=== PATIENT | female | born 1990 | race American Indian/Alaskan Native ===

== ENCOUNTER 2019-10-15 11:11 | Emergency (ER) | payer OTHER ==
[2019-10-15 11:23] VITALS: BP 150/83
[2019-10-15 12:12] LABS: HCG Qualitative,Urine Positive (Negative)
[2019-10-15 12:16] LABS: Bilirubin,Urine NEG (Negative); Blood,Urine NEG (Negative); Color,Urine Yellow (Yellow); Mucus,Urine FEW /HPF; Protein,Urine <15 mg/dL mg/dL (Negative); Urobilinogen,Urine < 2.0 mg/dL (<2.0)
[2019-10-15] MEDS ORDERED: SODIUM CHLORIDE 0.9% 1000 ML 1,000 ML IV ONE (12:24)
[2019-10-15] MEDS ORDERED: METOCLOPRAMIDE 10 MG/2 ML INJ IV ONE (12:25)
[2019-10-15] MEDS ORDERED: diphenhydrAMINE 50 MG/ML VIAL IV ONE (12:38)
--- NOTE | 2019-10-15 12:39 | Emergency Department Report ---
ED HPI - General Chief complaint: Nausea/Vomiting/Diarrhea Stated complaint: DIZZY/HEADACHE/NAUSEA Time Seen by Provider: 10/15/19 12:24 Source: patient Mode of arrival: Ambulatory Limitations: No Limitations - History of Present Illness Initial comments: This is a 28-year-old female at approximately 10 weeks gestation presents the ED complaining of left-sided frontal and temporal throbbing headache for the past 4 weeks. Patient states that yesterday she had there was vomiting episode since the . Patient states she was unable to eat or drink and was severely nauseated. Patient states she had a telemetry appointment with her [facility] yesterday and after mentioning the headache was told to take Benadryl and Tylenol and if no relief presents the ED. Patient states that she gets care from my [facility]. Patient does note that for the past 4 weeks she has had nausea with mild vomiting and loss of appetite. She does deny fever/chills/blurry vision/abdominal pain/vaginal bleeding or vaginal discharge or urinary symptoms. - Related Data Previous Rx's Medication Instructions Recorded Last Taken Type Metoclopramide [Reglan] 10 mg PO TID #60 tab 10/15/19 Unknown Rx Allergies Allergy/AdvReac Type Severity Reaction Status Date / Time No Known Allergies Allergy Unverified 10/15/19 11:13 ED Review of Systems ROS: Stated complaint: DIZZY/HEADACHE/NAUSEA Other details as noted in HPI Comment: All other systems reviewed and negative ED Past Medical Hx - Past Medical History Previous Medical History?: No - Surgical History Hx Cholecystectomy: Yes - Social History Smoking Status: Never Smoker Substance Use Type: None - Medications Home Medications: Home Medications Medication Instructions Recorded Confirmed Last Taken Type Metoclopramide [Reglan] 10 mg PO TID #60 tab 10/15/19 Unknown Rx ED Physical Exam - General Limitations: No Limitations General appearance: alert, in no apparent distress - Head Head exam: Present: atraumatic, normocephalic - Eye Eye exam: Present: normal appearance, PERRL Pupils: Present: normal accommodation - ENT ENT exam: Present: normal exam, mucous membranes moist, TM's normal bilaterally (No erythema, no effusion) - Neck Neck exam: Present: normal inspection, full ROM. Absent: tenderness, meningismus - Respiratory Respiratory exam: Present: normal lung sounds bilaterally. Absent: respiratory distress - Cardiovascular Cardiovascular Exam: Present: regular rate, normal rhythm. Absent: systolic murmur, diastolic murmur, rubs, gallop - GI/Abdominal GI/Abdominal exam: Present: soft, normal bowel sounds. Absent: distended, tenderness - Extremities Exam Extremities exam: Present: normal inspection, full ROM - Back Exam Back exam: Present: normal inspection - Neurological Exam Neurological exam: Present: alert, oriented X3, normal gait - Psychiatric Psychiatric exam: Present: normal affect, normal mood - Skin Skin exam: Present: warm, dry, intact, normal color. Absent: rash ED Course Vital Signs 10/15/19 11:14 Temperature 98.4 F Pulse Rate 90 Respiratory 18 Rate Blood Pressure 150/83 O2 Sat by Pulse 99 Oximetry ED Medical Decision Making - Medical Decision Making This 28-year-old female who presents with related symptoms such as headache and nausea vomiting. Patient received a liter of fluids Reglan and Benadryl in the ED. All labs within normal limits. Urine normal test positive. Patient had no vomiting episode in the ED. Nausea medication prescribed for patient. Discussed follow-up with my [facility]GER [facility]. Patient does report feeling better prior to discharge. Discussed the importance of increased hydration especially during as this can lead to headache. Vital signs are normal she is in no acute distress. Critical care attestation.: If time is entered above; I have spent that time in minutes in the direct care of this critically ill patient, excluding procedure time. ED Disposition Clinical Impression: Nausea and vomiting during , Headache Disposition: DC-01 TO HOME OR SELFCARE Is pt being admited?: No Does the pt Need Aspirin: No Condition: Stable Instructions: Morning Sickness (ED), Acute Nausea and Vomiting (ED), Acute Headache (ED) Additional Instructions: Make sure to follow up with my [facility] as discussed. Take your medications as you've been prescribed for nausea. Continue to take Tylenol as needed for headache Increase hydration to 8 to 10 glasses of water per day If you have any worsening symptoms or develop new symptoms please return to ED immediately. Prescriptions: Metoclopramide [Reglan] 10 mg PO TID #60 tab Referrals: PRIMARY CARE, [Primary Care Provider] - 3-5 Days [facility] [Provider Group] - 3-5 Days Forms: Accompanied Note, Work/School Release Form(ED)
[2019-10-15 13:14] LABS: Basophils # (Auto) 0.1 K/mm3 (0.0-0.1); Eosinophils # (Auto) 0.2 K/mm3 (0.0-0.4); Eosinophils % (Auto) 3.1 % (0.0-4.3); Hematocrit 36.7 % (30.3-42.9); Hemoglobin 12.5 gm/dl (10.1-14.3); Lymphocytes # (Auto) 1.9 K/mm3 (1.2-5.4); Lymphocytes % (Auto) 29.9 % (13.4-35.0); Mean Corpuscular HGB Conc 34 % (30-34); Mean Corpuscular Volume 81 fl (79-97); Monocytes # (Auto) 0.8 K/mm3 (0.0-0.8); Monocytes % (Auto) 11.7 % (0.0-7.3); Platelet Count 253 K/mm3 (140-440); Red Blood Count 4.51 M/mm3 (3.65-5.03)
[2019-10-15 13:25] LABS: Alanine Aminotransferase 18 units/L (7-56); Albumin 4.1 g/dL (3.9-5); BUN/Creatinine Ratio 10; Blood Urea Nitrogen 4 mg/dL (7-17); Calcium 9.4 mg/dL (8.4-10.2); Hemolysis Index 24
== END 2019-10-15 15:13 | disposition home or self-care (01) ==
LOC: ED 11:11
DX: O21.8 Other vomiting complicating pregnancy (principal); O26.891 Other specified pregnancy related conditions, first trimester; R51 Headache; Z3A.10 10 weeks gestation of pregnancy; Z90.49 Acquired absence of other specified parts of digestive tract; Z79.899 Other long term (current) drug therapy
CPT/HCPCS: 36415; 80053; 81001; 81025; 85025; 96361; 96374; 96375; 99283; J1200; J2765; J7030

== ENCOUNTER 2020-01-30 20:34 | Outpatient (CLI) | payer OTHER ==
[2020-01-30 21:12] VITALS: BP 123/73
== END 2020-01-30 22:20 | disposition home or self-care (01) ==
LOC: TRG 20:34 → APU 20:35 → TRG 22:20
PROVIDERS: ATTEND Obstetrics & Gynecology
DX: O26.892 Other specified pregnancy related conditions, second trimester (principal); R10.9 Unspecified abdominal pain; Z3A.25 25 weeks gestation of pregnancy
CPT/HCPCS: 59025

== ENCOUNTER 2020-03-23 19:30 | Outpatient (CLI) | payer OTHER ==
[2020-03-23 19:52] VITALS: BP 125/67
[2020-03-23 20:46] LABS: Bacteria,Urine 1+ /HPF (Negative); Bilirubin,Urine NEG (Negative); Blood,Urine NEG (Negative); Color,Urine Colorless (Yellow); Protein,Urine <15 mg/dL mg/dL (Negative); RBC,Urine < 1.0 /HPF (0.0-6.0); Urobilinogen,Urine < 2.0 mg/dL (<2.0)
[2020-03-23 20:47] LABS: WBC,Urine < 1.0 /HPF (0.0-6.0)
== END 2020-03-23 20:42 | disposition home or self-care (01) ==
LOC: TRG 19:30
PROVIDERS: ATTEND Obstetrics & Gynecology
DX: Z34.83 Encounter for supervision of other normal pregnancy, third trimester (principal); Z3A.33 33 weeks gestation of pregnancy
CPT/HCPCS: 59025; 81001

== ENCOUNTER 2020-04-19 18:26 | Inpatient (IN) | payer OTHER ==
[2020-04-19] MEDS ORDERED: LACTATED RINGERS 1,000 ML IV ONE (23:18)
[2020-04-20] MEDS ORDERED: fentaNYL 100 MCG/2 ML INJ IV PRN (03:27)
[2020-04-20] MEDS ORDERED: ePHEDrine SULFATE 50 MG/1 ML INJ IV PRN (03:27)
[2020-04-20] MEDS ORDERED: LIDOCAINE (2%) 20 MG/1 ML VIAL 20 ML MDV INFILTRATI ONE (03:27)
[2020-04-20] MEDS ORDERED: TERBUTALINE 1 MG/1 ML INJ SUB-Q PRN (03:27)
[2020-04-20] MEDS ORDERED: MINERAL OIL 30 ML ORAL LIQD PO PRN (03:27)
[2020-04-20] MEDS ORDERED: ONDANSETRON 4 MG/2 ML INJ IV PRN (03:27)
[2020-04-20] MEDS ORDERED: LACTATED RINGERS 1,000 ML IV SCH (04:00)
[2020-04-20] MEDS ORDERED: OXYTOCIN DRIP 30 UNITS/500 ML BAG IV SCH (04:00)
--- NOTE | 2020-04-20 06:45 | History and Physical Report ---
History of Present Illness Date of examination: 04/20/20 Chief complaint: "regular contractions since 4:30pm" last night History of present illness: EDC Confirmation: 05/10/2020 Past History : 6 Term Births: 3 Premature Births: 0 Living Children: 3 Para: 3 Mult. Births: 0 Prev : 0 Aborta: 2 Elect. Ab: 0 Spont. Ab: 2 Ectopics: 0 # 1 Delivery date: 2006 Weeks Gestation: term labor: no Delivery type: Anesthesia type: none Delivery location: [place] Sex: Female weight: 7# # 2 Delivery date: 2007 Weeks Gestation: term labor: no Delivery type: Anesthesia type: none Delivery location: [place] Sex: Female weight: 7# # 3 Delivery date: 2012 Weeks Gestation: term labor: no Delivery type: Anesthesia type: none Delivery location: [place] [facility] Sex: Female weight: 8# # 4 Delivery date: 2017 Delivery type: SAB Comments: D&C # 5 Delivery date: 2018 Delivery type: SAB Past Medical History: Negative Past Medical History Past Surgical History: Cholecystectomy 2017 Past Medical History Surgery (Non-obstetrics gyn physician): Cholecystectomy 2017 Abnormal PAP: negative Family Hx: htn - mother & father DM - mother & father Social Hx: Works at [employer] no pets no ETOH/Drugs/smoking Infection History Hx of STD: chlamydia HIV Risk Eval: low risk Hepatitis B Risk Eval: low risk Personal hx. of genital herpes: no Partner hx. of genital herpes: no Rash, Viral, or Febrile illness since last LMP? no Varicella/Chicken Pox Status: Previous Disease Genetic History Congenital Heart Defect: Mom: no Dad: no Evaristo Disease: Mom: no Dad: no Thalassemia Mom: no Dad: no Neural Tube Defect Mom: no Dad: no Down's Syndrome Mom: no Dad: no Michele-Sachs Mom: no Dad: no Sickle Cell Disease/Trait Mom: no Dad: no Hemophilia Mom: no Dad: no Muscular Dystrophy Mom: no Dad: no Cystic Fibrosis Mom: no Dad: no [place] Chorea Mom: no Dad: no Mental Retardation Mom: no Dad: no Fragile X Mom: no Dad: no Other Genetic/Chromosomal Disorder Mom: no Dad: no Child w/other defect Mom: no Dad: no Enviromental Exposures Xray Exposure: no Medication, drug, or alcohol use since LMP: no Chemical/Other Exposure: no Exposure to Cat Liter: no Hx of Parvovirus (Fifth Disease): no Occupational Exposure to Children: none Active Medications: None Current Allergies: No known allergies Past History - Obstetrical History Expected Date of Delivery: 05/10/20 Actual Gestation: 37 Week(s) 1 Day(s) : 4 Medications and Allergies Allergies Allergy/AdvReac Type Severity Reaction Status Date / Time No Known Allergies Allergy Unverified 10/15/19 11:13 Home Medications Medication Instructions Recorded Confirmed Last Taken Type Metoclopramide [Reglan] 10 mg PO TID #60 tab 10/15/19 Unknown Rx Active Meds: Active Medications Ephedrine Sulfate (Ephedrine Sulfate) 10 mg IV Q2M PRN PRN Reason: Hypotension Fentanyl (Sublimaze) 100 mcg IV Q2H PRN PRN Reason: Pain,Severe (7-10) LABOR PAIN Lactated Ringer's (Lactated Ringers) 1,000 mls @ 125 mls/hr IV DIRECT ANNABELLA Oxytocin/Sodium Chloride (Pitocin/Ns 30 Unit/500ml) 30 units in 500 mls @ 40 mls/hr IV TITR ANNABELLA; Protocol Mineral Oil (Mineral Oil) 30 ml PO QHS PRN PRN Reason: Constipation Ondansetron HCl (Zofran) 4 mg IV Q8H PRN PRN Reason: Nausea And Vomiting Terbutaline Sulfate (Brethine) 0.25 mg SUB-Q ONCE PRN PRN Reason: Hyperstimulation/Hypertonicity Review of Systems All systems: negative Genitourinary: contractions - Vital Signs Vital signs: Vital Signs Pulse Pulse Ox 99 H 97 04/19/20 19:47 04/19/20 19:47 Temp Pulse Resp BP Pulse Ox 98.1 F 100 H 18 137/74 97 04/20/20 06:15 04/19/20 23:21 04/20/20 06:15 04/20/20 06:15 04/19/20 23:21 - Physical Exam Breasts: Positive: deferred Cardiovascular: Regular rate, Normal S1, Normal S2 Lungs: Positive: Clear to auscultation, Normal air movement Abdomen: Positive: normal appearance, soft Genitourinary (Female): Positive: normal external genitalia, normal perenium Vulva: both: normal Vagina: Positive: normal moisture Uterus: Positive: normal size Anus/Rectum: Positive: normal perianal skin Extremities: Positive: normal - Obstetrical FHR: auscultation normal, category 1 Uterine Contraction Monitor Mode: External Cervical Dilatation: 2.5 Uterine Contraction Pattern: Regular Uterine Contraction Intensity: Moderate Results All other labs normal. Assessment and Plan - Patient Problems (1) GDM (gestational diabetes mellitus) Current Visit: Yes Status: Acute (2) Polyhydramnios Current Visit: Yes Status: Acute (3) 37 or more weeks gestation of Current Visit: Yes Status: Acute (4) 37 weeks gestation of Current Visit: Yes Status: Acute
[2020-04-20 07:23] LABS: Hematocrit 32.2 % (30.3-42.9); Hemoglobin 10.8 gm/dl (10.1-14.3); Mean Corpuscular HGB Conc 34 % (30-34); Mean Corpuscular Volume 79 fl (79-97); Red Blood Count 4.06 M/mm3 (3.65-5.03); Red Cell Distribution Width 14.8 % (13.2-15.2)
--- NOTE | 2020-04-20 07:32 | Discharge Summary ---
Providers - Providers Date of Admission: 04/20/2020 Date of discharge: 04/20/20 (Pt agrees to discharge home.) Attending physician: DEVIN GARCIA Primary care physician: BLAZE DIAMOND Hospitalization Reason for admission: observation, other (Early labor) Discharge diagnosis: other (37+ wks undelivered. Category 1 EFM tracing. ) Hospital course: S: Still feeling some ctxs. Denies vag bleeding, LOF. + FM. O: VSS. Category 1 EFM tracing. Cervical exam /-3. Regular ctxs @ 5 minutes apart. A: 29 y.o. @ 37+ wks with early labor s/sx, ctxs. Unchanged cervix for approximately 6.5 hours. No LOF, vag bleeding. P: Therapeutic rest @ home. Strict labor precautions given. Discharge home with instructions. Condition at discharge: Good Disposition: DC-01 TO HOME OR SELFCARE Plan - Provider Discharge Summary Activity: routine Diet: routine Instructions: routine Additional instructions: [] Smoking cessation referral if applicable(refer to patient education folder for contact #) [] Refer to [employer] Booklet Call your doctor immediately for: * Fever > 100.5 * Heavy vaginal bleeding ( >1 pad per hour) * Severe persistent headache * Shortness of breath * Reddened, hot, painful area to leg or breast * Drainage or odor from incision. * Keep incision clean and dry at all times and follow doctor's instructions regarding bathing/showering - Follow up plan Follow up: BLAZE DIAMOND MD [Primary Care Provider] - 7 Days (If you experience decreased movement, vaginal bleeding like a period, ctxs 5-7 minutes apart, or if you think that your water broke, please call the personalized living manager provider and come to [facility] triage for evaluation. If you have any additional questions or concerns, please do not hesitate to call the office at [phone]. )
[2020-04-20 07:56] VITALS: BP 112/57
[2020-04-20] MEDS ORDERED: ACETAMINOPHEN 500 MG TAB PO SCH (08:00)
[2020-04-20 08:21] LABS: Platelet Count 258 K/mm3 (140-440)
== END 2020-04-20 09:27 | disposition home or self-care (01) | DRG 781 ==
LOC: TRG 18:26 → APU 18:31 → TRG 04-20 08:09 → LD 04-20 08:10
PROVIDERS: ADMIT Obstetrics & Gynecology; ATTEND Obstetrics & Gynecology
DX: O40.3XX0 Polyhydramnios, third trimester, not applicable or unspecified (principal); O24.419 Gestational diabetes mellitus in pregnancy, unspecified control; Z20.828 Contact with and (suspected) exposure to other viral communicable diseases; Z90.49 Acquired absence of other specified parts of digestive tract; Z3A.37 37 weeks gestation of pregnancy
CPT/HCPCS: 36415; 85027; 86592; 86850; 86900; 86901; G0378; J7120; Q0177; U0003

== ENCOUNTER 2020-04-22 03:01 | Outpatient (CLI) | payer OTHER ==
[2020-04-22 03:32] VITALS: BP 134/80
== END 2020-04-22 05:00 | disposition home or self-care (01) ==
LOC: TRG 03:01 → APU 03:13 → TRG 05:00
PROVIDERS: ATTEND Obstetrics & Gynecology
DX: Z34.83 Encounter for supervision of other normal pregnancy, third trimester (principal); Z3A.37 37 weeks gestation of pregnancy
CPT/HCPCS: 59025

== ENCOUNTER 2020-05-05 20:24 | Inpatient (IN) | payer OTHER ==
[2020-05-05] MEDS ORDERED: ONDANSETRON 4 MG/2 ML INJ IV PRN (20:58)
[2020-05-05] MEDS ORDERED: ACETAMINOPHEN 325 MG TAB PO PRN (20:58)
[2020-05-05] MEDS ORDERED: fentaNYL 100 MCG/2 ML INJ IV PRN (20:58)
[2020-05-05] MEDS ORDERED: ePHEDrine SULFATE 50 MG/1 ML INJ IV PRN (20:58)
[2020-05-05] MEDS ORDERED: OXYTOCIN 10 UNIT/1 ML INJ IM PRN (20:58)
[2020-05-05] MEDS ORDERED: miSOPROStol 200 MCG TAB PR PRN (20:58)
[2020-05-05] MEDS ORDERED: TERBUTALINE 1 MG/1 ML INJ SUB-Q PRN (20:58)
[2020-05-05] MEDS ORDERED: METHYLERGONOVINE MALEATE 0.2 MG/ML VIAL IM PRN (20:58)
[2020-05-05] MEDS ORDERED: MINERAL OIL 30 ML ORAL LIQD PO PRN (20:58)
[2020-05-05] MEDS ORDERED: LIDOCAINE (2%) 20 MG/1 ML VIAL 20 ML MDV INFILTRATI ONE (20:58)
[2020-05-05] MEDS ORDERED: OXYTOCIN DRIP 30 UNITS/500 ML BAG IV SCH ×2 (21:00)
--- NOTE | 2020-05-05 21:20 | History and Physical Report ---
History of Present Illness Date of examination: 05/05/20 ([facility] Date of admission: 05/05/20 20:25 History of present illness: EDC Confirmation: 05/10/2020 Gestational Age: 39w2d Past History : 6 Term Births: 3 Premature Births: 0 Living Children: 3 Para: 3 Mult. Births: 0 Prev : 0 Aborta: 2 Elect. Ab: 0 Spont. Ab: 2 Ectopics: 0 # 1 Delivery date: 2006 Weeks Gestation: term labor: no Delivery type: Anesthesia type: none Delivery location: [place] Sex: Female weight: 7# # 2 Delivery date: 2007 Weeks Gestation: term labor: no Delivery type: Anesthesia type: none Delivery location: [place] Sex: Female weight: 7# # 3 Delivery date: 2012 Weeks Gestation: term labor: no Delivery type: Anesthesia type: none Delivery location: [place] [facility] Sex: Female weight: 8# # 4 Delivery date: 2017 Delivery type: SAB Comments: D&C # 5 Delivery date: 2018 Delivery type: SAB Past Medical History: Negative Past Medical History Past Surgical History: Cholecystectomy 2017 Past Medical History Surgery (Non-dumper bulk system): Cholecystectomy 2017 Abnormal PAP: negative Family Hx: htn - mother & father DM - mother & father Social Hx: Works at [employer] no pets no ETOH/Drugs/smoking Infection History Hx of STD: chlamydia HIV Risk Eval: low risk Hepatitis B Risk Eval: low risk Personal hx. of genital herpes: no Partner hx. of genital herpes: no Rash, Viral, or Febrile illness since last LMP? no Varicella/Chicken Pox Status: Previous Disease Genetic History Congenital Heart Defect: Mom: no Dad: no Evaristo Disease: Mom: no Dad: no Thalassemia Mom: no Dad: no Neural Tube Defect Mom: no Dad: no Down's Syndrome Mom: no Dad: no Michele-Sachs Mom: no Dad: no Sickle Cell Disease/Trait Mom: no Dad: no Hemophilia Mom: no Dad: no Muscular Dystrophy Mom: no Dad: no Cystic Fibrosis Mom: no Dad: no [place] Chorea Mom: no Dad: no Mental Retardation Mom: no Dad: no Fragile X Mom: no Dad: no Other Genetic/Chromosomal Disorder Mom: no Dad: no Child w/other defect Mom: no Dad: no Enviromental Exposures Xray Exposure: no Medication, drug, or alcohol use since LMP: no Chemical/Other Exposure: no Exposure to Cat Liter: no Hx of Parvovirus (Fifth Disease): no Occupational Exposure to Children: none Active Medications: None Current Allergies: No known allergies Past History - Obstetrical History Expected Date of Delivery: 05/10/20 Actual Gestation: 39 Week(s) 2 Day(s) : 6 Para: 3 Hx # Term Pregnancies: 3 Number of Pregnancies: 0 Spontaneous Abortions: 2 Induced : 0 Number of Living Children: 3 Medications and Allergies Allergies Allergy/AdvReac Type Severity Reaction Status Date / Time No Known Allergies Allergy Unverified 10/15/19 11:13 Home Medications Medication Instructions Recorded Confirmed Last Taken Type Metoclopramide [Reglan] 10 mg PO TID #60 tab 10/15/19 Unknown Rx Active Meds: Active Medications Acetaminophen (Tylenol) 650 mg PO Q4H PRN PRN Reason: Pain, Mild (1-3) Ephedrine Sulfate (Ephedrine Sulfate) 10 mg IV Q2M PRN PRN Reason: Hypotension Fentanyl (Sublimaze) 100 mcg IV Q2H PRN PRN Reason: Pain,Severe (7-10) LABOR PAIN Oxytocin/Sodium Chloride (Pitocin/Ns 30 Unit/500ml) 30 units in 500 mls @ 2 mls/hr IV TITR ANNABELLA; Protocol Lactated Ringer's (Lactated Ringers) 1,000 mls @ 125 mls/hr IV DIRECT ANNABELLA Oxytocin/Sodium Chloride (Pitocin/Ns 30 Unit/500ml) 30 units in 500 mls @ 40 mls/hr IV TITR ANNABELLA; Protocol Lidocaine (Xylocaine 2%) 20 ml INFILTRATI ONCE ONE Stop: 05/05/20 20:59 Methylergonovine Maleate (Methergine) 0.2 mg IM ONCE PRN PRN Reason: Uterine Bleeding Mineral Oil (Mineral Oil) 30 ml PO QHS PRN PRN Reason: Constipation Misoprostol (Cytotec) 800 mcg MI ONCE PRN PRN Reason: Uterine Bleeding Ondansetron HCl (Zofran) 4 mg IV Q8H PRN PRN Reason: Nausea And Vomiting Oxytocin (Pitocin) 10 unit IM ONCE PRN PRN Reason: Uterine Bleeding Terbutaline Sulfate (Brethine) 0.25 mg SUB-Q ONCE PRN PRN Reason: Hyperstimulation/Hypertonicity Review of Systems All systems: negative - Physical Exam Breasts: Positive: deferred Cardiovascular: Regular rate, Normal S1, Normal S2 Abdomen: Positive: normal appearance, soft, normal bowel sounds. Negative: distention, tenderness Vulva: both: normal Vagina: Positive: normal moisture. Negative: discharge Cervix: Negative: lesion, discharge Uterus: Positive: normal size, normal contour Adnexa: both: normal Anus/Rectum: Positive: normal perianal skin, heme negative. Negative: rectal mass, hemorrhoids Extremities: Deep Tendon Reflex Grade: Normal +2 - Obstetrical Uterine Contraction Monitor Mode: External Cervical Dilatation: 3 Cervical Effacement Percentage: 50 station: -2 Uterine Contraction Pattern: Irregular Uterine Tone Measurement Phase: Resting Uterine Contraction Intensity: Mild Results All other labs normal. GBS Negative HBsAg Screen Negative Negative *1 RPR Non Reactive Non Reactive *2 Rubella Antibodies, IgG 5.09 index Immune >0.99 *3 Non-immune <0.90 Equivocal 0.90 - 0.99 Immune >0.99 ABO Grouping O *4 Rh Factor Positive *5 Please note: Prior records for this patient's ABO / Rh type are not available for additional verification. Antibody Screen Negative Negative *6 WBC 8.7 x10E3/uL 3.4-10.8 *7 RBC 4.07 x10E6/uL 3.77-5.28 *8 Hemoglobin 11.1 g/dL 11.1-15.9 *9 Hematocrit 34.6 % 34.0-46.6 *10 MCV 85 fL 79-97 *11 MCH 27.3 pg 26.6-33.0 *12 MCHC 32.1 g/dL 31.5-35.7 *13 RDW [H] 15.6 % 11.7-15.4 *14 Platelets 229 x10E3/uL 150-450 *15 Neutrophils 71 % Not Estab. *16 Lymphs 18 % Not Estab. *17 Monocytes 10 % Not Estab. *18 Eos 1 % Not Estab. *19 Basos 0 % Not Estab. *20 ! Immature Cells <No Reported Value> *21 Neutrophils (Absolute) 6.1 x10E3/uL 1.4-7.0 *22 Lymphs (Absolute) 1.6 x10E3/uL 0.7-3.1 *23 Monocytes(Absolute) 0.9 x10E3/uL 0.1-0.9 *24 Eos (Absolute) 0.1 x10E3/uL 0.0-0.4 *25 Baso (Absolute) 0.0 x10E3/uL 0.0-0.2 *26 ! Immature Granulocytes 0 % Not Estab. *27 ! Immature Grans (Abs) 0.0 x10E3/uL 0.0-0.1 *28 ! NRBC <No Reported Value> *29 Hematology Comments: <No Reported Value> *30 Tests: (2) AFP Tetra ([id number]) ! Results Report *31 ! Test Results: *Screen Negative* *32 ! Gest. Age on Collection Date 15.1 WEEKS *33 ! Gestat. Age Based On Ultrasound *34 15.1 on 11/18/2019 Tests: (3) HIV Ag/Ab with Reflex ([id number]) HIV Screen 4th Generation wRfx Non Reactive Non Reactive *55 Tests: (4) Gest. Diabetes 1-Hr Screen (760332) ! Gestational Diabetes Screen 131 mg/dL 65-139 *56 According to ADA, a glucose threshold of >139 mg/dL after 50-gram load identifies approximately 80% of women with gestational diabetes mellitus, while the sensitivity is further increased to approximately 90% by a threshold of >129 mg/dL. Tests: (5) HCV Ab w/Rflx to Verification ([id number]) ! HCV Ab <0.1 s/co ratio 0.0-0.9 *57 Tests: (6) Comment: ([id number]) ! Comment: SPRCS *58 Non reactive HCV antibody screen is consistent with no HCV infection, unless recent infection is suspected or other evidence exists to indicate HCV infection. Tests: (7) Urine Culture, Routine ([id number]) Urine Culture, Routine Final report *59 Tests: (8) Result ([id number]) ! Result 1 No growth Assessment and Plan 29yo @ 39w2d for IOL per recommendation of AMFM. Poly, GDM,obesity. GBS is negative All orders in EMR. Low dose pitocin for IOL. Pt declines epidural - Patient Problems (1) GDM (gestational diabetes mellitus) Onset Date: ~05/05/20 Current Visit: Yes Status: Acute Qualifiers: Gestational diabetes mellitus control: diet-controlled Trimester: second trimester Qualified Code(s): O24.410 - Gestational diabetes mellitus in , diet controlled Plan to address problem: BS Q6hr
[2020-05-05] MEDS ORDERED: diphenhydrAMINE 50 MG CAP PO NR (22:00)
[2020-05-05 22:26] LABS: Hematocrit 32.5 % (30.3-42.9); Mean Corpuscular HGB Conc 34 % (30-34); Mean Corpuscular Volume 80 fl (79-97); Platelet Count 208 K/mm3 (140-440); Red Blood Count 4.05 M/mm3 (3.65-5.03); Red Cell Distribution Width 15.8 % (13.2-15.2)
[2020-05-05] MEDS: LACTATED RINGERS 1,000 ML IV SCH (22:35)
[2020-05-06] MEDS ORDERED: ePHEDrine SULFATE 50 MG/1 ML INJ IV PRN (05:21)
[2020-05-06] MEDS ORDERED: NALOXONE 2 MG/2 ML INJ IV PRN (05:21)
--- NOTE | 2020-05-06 05:24 | Anesthesia Consultation ---
Anesthesia Consult and Med Hx Date of service: 05/06/20 - Airway Anesthetic Teeth Evaluation: Good ROM Head & Neck: Adequate Mental/Hyoid Distance: Adequate Mallampati Class: Class II Intubation Access Assessment: Probably Good - Pulmonary Exam CTA: Yes - Cardiac Exam Cardiac Exam: RRR - Pre-Operative Health Status ASA Pre-Surgery Classification: ASA3 Proposed Anesthetic Plan: Epidural - Pulmonary Hx Smoking: Yes Hx Asthma: No - Cardiovascular System Hx Hypertension: No - Central Nervous System Hx Seizures: No Hx Psychiatric Problems: No - Endocrine Hx Renal Disease: No Hx Non-Insulin Dependent Diabetes: Yes Hx Hypothyroidism: No Hx Hyperthyroidism: No - Hematic Hx Anemia: No Hx Sickle Cell Disease: Yes (trait) - Other Systems Hx Alcohol Use: No Hx Obesity: Yes
--- NOTE | 2020-05-06 05:25 | Progress Note ---
Labor Epidural - Labor Epidural Start Time: 05:00 Stop Time: 05:05 Performed by:: DARIUS CHRIS Procedure: Patient is requesting epidural for labor pain. H&P, and labs reviewed. Procedure explained, questions answered, consent obtained. Patient in sitting position with blood pressure cuff and pulse ox on and working. Timeout performed immediately before start of procedure. Sterile betadine prep/drape. 3 mL 1% lidocaine skin wheal at L[3]-L[4]. 18-gauge Datavolution epidural needle advanced to [id number] with saline at [7] cm. Epidural dexmedetomidine [30] mcg administered. Epidural catheter advanced to [12] cm, negative aspiration for blood and csf, negative test dose 3 ml 1.5% lidocaine with epinephrine. Sterile steri-strips and tegaderm applied, followed by tape reinforcement. Patient tolerated procedure well.
--- NOTE | 2020-05-06 05:53 | Progress Note ---
Assessment and Plan Pt went to active labor was checked by the RN and found to be 6-7. Pt req epidural. On my arrival epidural was completed. Newsome placed. SVE 8,100,-2 BBOW. Will leak fluid soon. Anticipate delivery - Patient Problems (1) GDM (gestational diabetes mellitus) Onset Date: ~05/05/20 Current Visit: Yes Status: Acute Qualifiers: Gestational diabetes mellitus control: diet-controlled Trimester: second trimester Qualified Code(s): O24.410 - Gestational diabetes mellitus in , diet controlled Plan to address problem: Random BS 101 Subjective - Subjective Date of service: 05/06/20 (pt getting comfortable with epidural) Principal diagnosis: IUP @ 39.3w Poly,GDM,Obesity IOL Interval history: EDC Confirmation: 05/10/2020 Gestational Age: 39w2d Past History : 6 Term Births: 3 Premature Births: 0 Living Children: 3 Para: 3 Mult. Births: 0 Prev : 0 Aborta: 2 Elect. Ab: 0 Spont. Ab: 2 Ectopics: 0 # 1 Delivery date: 2006 Weeks Gestation: term labor: no Delivery type: Anesthesia type: none Delivery location: [place] Infant Sex: Female weight: 7# # 2 Delivery date: 2007 Weeks Gestation: term labor: no Delivery type: Anesthesia type: none Delivery location: [place] Infant Sex: Female weight: 7# # 3 Delivery date: 2012 Weeks Gestation: term labor: no Delivery type: Anesthesia type: none Delivery location: [place] Sex: Female weight: 8# # 4 Delivery date: 2017 Delivery type: SAB Comments: D&C # 5 Delivery date: 2018 Delivery type: SAB Past Medical History: Negative Past Medical History Past Surgical History: Cholecystectomy 2017 Past Medical History Surgery (Non-foam charger): Cholecystectomy 2017 Abnormal PAP: negative Family Hx: htn - mother & father DM - mother & father Social Hx: Works at [employer] no pets no ETOH/Drugs/smoking Infection History Hx of STD: chlamydia HIV Risk Eval: low risk Hepatitis B Risk Eval: low risk Personal hx. of genital herpes: no Partner hx. of genital herpes: no Rash, Viral, or Febrile illness since last LMP? no Varicella/Chicken Pox Status: Previous Disease Genetic History Congenital Heart Defect: Mom: no Dad: no Evaristo Disease: Mom: no Dad: no Thalassemia Mom: no Dad: no Neural Tube Defect Mom: no Dad: no Down's Syndrome Mom: no Dad: no Michele-Sachs Mom: no Dad: no Sickle Cell Disease/Trait Mom: no Dad: no Hemophilia Mom: no Dad: no Muscular Dystrophy Mom: no Dad: no Cystic Fibrosis Mom: no Dad: no [place] Chorea Mom: no Dad: no Mental Retardation Mom: no Dad: no Fragile X Mom: no Dad: no Other Genetic/Chromosomal Disorder Mom: no Dad: no Child w/other defect Mom: no Dad: no Enviromental Exposures Xray Exposure: no Medication, drug, or alcohol use since LMP: no Chemical/Other Exposure: no Exposure to Cat Liter: no Hx of Parvovirus (Fifth Disease): no Occupational Exposure to Children: none Active Medications: None Current Allergies: No known allergies Patient reports: movement normal, contractions Objective - Vital Signs Vital Signs: Vital Signs - 12hr 05/05/20 05/05/20 05/06/20 22:35 23:35 02:25 Pulse Rate 83 77 Respiratory 18 Rate Blood Pressure 112/78 137/65 O2 Sat by Pulse Oximetry 05/06/20 05/06/20 05/06/20 02:29 05:03 05:06 Pulse Rate 93 H 82 104 H Respiratory Rate Blood Pressure 124/86 132/60 O2 Sat by Pulse 100 Oximetry 05/06/20 05/06/20 05/06/20 05:08 05:11 05:13 Pulse Rate 87 64 68 Respiratory Rate Blood Pressure 139/61 O2 Sat by Pulse 100 80 L 90 Oximetry 05/06/20 05/06/20 05/06/20 05:18 05:23 05:26 Pulse Rate 85 109 H 108 H Respiratory Rate Blood Pressure 120/58 O2 Sat by Pulse 99 99 Oximetry 05/06/20 05/06/20 05/06/20 05:28 05:30 05:32 Pulse Rate 107 H 108 H 100 H Respiratory Rate Blood Pressure 123/60 113/57 114/55 O2 Sat by Pulse 97 Oximetry 05/06/20 05/06/20 05/06/20 05:33 05:38 05:43 Pulse Rate 109 H 110 H 106 H Respiratory Rate Blood Pressure O2 Sat by Pulse 98 98 98 Oximetry - Exam Breasts: deferred Cardiovascular: Regular rate Lungs: Normal air movement Abdomen: Present: normal appearance, soft. Absent: distention, tenderness Uterus: Present: normal FHR: auscultation normal, category 2 (variables) Uterine Contraction Monitor Mode: External Cervical Dilatation: 8 (BBOW) Cervical Effacement Percentage: 100 station: -2 Uterine Contraction Pattern: Regular Uterine Tone Measurement Phase: Resting Uterine Contraction Intensity: Strong/Firm Extremities: edema Deep Tendon Reflex Grade: Normal +2 - Labs Labs: Abnormal Labs 05/05/20 22:00 MCH 27 L RDW 15.8 H Laboratory Results - last 24 hr 05/05/20 05/05/20 05/05/20 22:00 22:00 22:00 WBC 9.2 RBC 4.05 Hgb 11.0 Hct 32.5 MCV 80 MCH 27 L MCHC 34 RDW 15.8 H Plt Count 208 POC Glucose Syphilis IgG Antibody Nonreactive Blood Type O POSITIVE Antibody Screen Negative 05/06/20 05:28 WBC RBC Hgb Hct MCV MCH MCHC RDW Plt Count POC Glucose 101 Syphilis IgG Antibody Blood Type Antibody Screen
[2020-05-06] MEDS ORDERED: fentaNYL-BUPIV 2 MCG/ML-0.125% 200 MCG/100 ML BAG EPIDURAL SCH (06:00)
[2020-05-06] MEDS ORDERED: BUPIVACAINE/PF (0.25%) 2.5 MG/ML 10 ML VIAL INFILTRATI ONE (06:51)
--- NOTE | 2020-05-06 07:11 | Progress Note ---
Assessment and Plan Epidural redosed. Attempted to push X 30 min. Cervix is now 8,100, -2 Pit @ 6mu. Pt understands chg in POC. Pt continues to have a strong urge to push. Positioned lateral with leg in stirup Report to G[facility] - Patient Problems (1) GDM (gestational diabetes mellitus) Onset Date: ~05/05/20 Current Visit: Yes Status: Acute Qualifiers: Gestational diabetes mellitus control: diet-controlled Trimester: second trimester Qualified Code(s): O24.410 - Gestational diabetes mellitus in , diet controlled Subjective - Subjective Date of service: 05/06/20 (approx a gallon of fluid out) Principal diagnosis: IUP @ 39.3w Poly,GDM,Obesity IOL Interval history: EDC Confirmation: 05/10/2020 Gestational Age: 39w2d Past History : 6 Term Births: 3 Premature Births: 0 Living Children: 3 Para: 3 Mult. Births: 0 Prev : 0 Aborta: 2 Elect. Ab: 0 Spont. Ab: 2 Ectopics: 0 # 1 Delivery date: 2006 Weeks Gestation: term labor: no Delivery type: Anesthesia type: none Delivery location: [place] Sex: Female weight: 7# # 2 Delivery date: 2007 Weeks Gestation: term labor: no Delivery type: Anesthesia type: none Delivery location: [place] Infant Sex: Female weight: 7# # 3 Delivery date: 2012 Weeks Gestation: term labor: no Delivery type: Anesthesia type: none Delivery location: [place] Sex: Female weight: 8# # 4 Delivery date: 2017 Delivery type: SAB Comments: D&C # 5 Delivery date: 2018 Delivery type: SAB Past Medical History: Negative Past Medical History Past Surgical History: Cholecystectomy 2017 Past Medical History Surgery (Non-pulp mixer): Cholecystectomy 2017 Abnormal PAP: negative Family Hx: htn - mother & father DM - mother & father Social Hx: Works at [employer] no pets no ETOH/Drugs/smoking Infection History Hx of STD: chlamydia HIV Risk Eval: low risk Hepatitis B Risk Eval: low risk Personal hx. of genital herpes: no Partner hx. of genital herpes: no Rash, Viral, or Febrile illness since last LMP? no Varicella/Chicken Pox Status: Previous Disease Genetic History Congenital Heart Defect: Mom: no Dad: no Evaristo Disease: Mom: no Dad: no Thalassemia Mom: no Dad: no Neural Tube Defect Mom: no Dad: no Down's Syndrome Mom: no Dad: no Michele-Sachs Mom: no Dad: no Sickle Cell Disease/Trait Mom: no Dad: no Hemophilia Mom: no Dad: no Muscular Dystrophy Mom: no Dad: no Cystic Fibrosis Mom: no Dad: no [place] Chorea Mom: no Dad: no Mental Retardation Mom: no Dad: no Fragile X Mom: no Dad: no Other Genetic/Chromosomal Disorder Mom: no Dad: no Child w/other defect Mom: no Dad: no Enviromental Exposures Xray Exposure: no Medication, drug, or alcohol use since LMP: no Chemical/Other Exposure: no Exposure to Cat Liter: no Hx of Parvovirus (Fifth Disease): no Occupational Exposure to Children: none Active Medications: None Current Allergies: No known allergies Patient reports: movement normal, contractions Objective - Vital Signs Vital Signs: Vital Signs - 12hr 05/05/20 05/05/20 05/06/20 22:35 23:35 02:25 Pulse Rate 83 77 Respiratory 18 Rate Blood Pressure 112/78 137/65 O2 Sat by Pulse Oximetry 05/06/20 05/06/20 05/06/20 02:29 05:03 05:06 Pulse Rate 93 H 82 104 H Respiratory Rate Blood Pressure 124/86 132/60 O2 Sat by Pulse 100 Oximetry 05/06/20 05/06/20 05/06/20 05:08 05:11 05:13 Pulse Rate 87 64 68 Respiratory Rate Blood Pressure 139/61 O2 Sat by Pulse 100 80 L 90 Oximetry 05/06/20 05/06/20 05/06/20 05:18 05:23 05:26 Pulse Rate 85 109 H 108 H Respiratory Rate Blood Pressure 120/58 O2 Sat by Pulse 99 99 Oximetry 05/06/20 05/06/20 05/06/20 05:28 05:30 05:32 Pulse Rate 107 H 108 H 100 H Respiratory Rate Blood Pressure 123/60 113/57 114/55 O2 Sat by Pulse 97 Oximetry 05/06/20 05/06/20 05/06/20 05:33 05:38 05:43 Pulse Rate 109 H 110 H 106 H Respiratory Rate Blood Pressure O2 Sat by Pulse 98 98 98 Oximetry 12/04/20 12/04/20 12/04/20 05:48 05:51 05:53 Pulse Rate 102 H 102 H 114 H Respiratory Rate Blood Pressure 97/53 O2 Sat by Pulse 96 99 Oximetry 05/06/20 05/06/20 05/06/20 05:54 05:55 05:58 Pulse Rate 100 H 100 H 113 H Respiratory Rate Blood Pressure 97/50 104/55 O2 Sat by Pulse 99 Oximetry 05/06/20 05/06/20 05/06/20 06:03 06:04 06:08 Pulse Rate 106 H 105 H 108 H Respiratory Rate Blood Pressure 103/56 O2 Sat by Pulse 99 100 Oximetry 05/06/20 05/06/20 05/06/20 06:13 06:18 06:21 Pulse Rate 118 H 148 H 126 H Respiratory Rate Blood Pressure 121/56 O2 Sat by Pulse 99 100 Oximetry 05/06/20 05/06/20 05/06/20 06:23 06:28 06:29 Pulse Rate 119 H 126 H 130 H Respiratory Rate Blood Pressure O2 Sat by Pulse 99 100 88 Oximetry 05/06/20 05/06/20 05/06/20 06:33 06:34 06:39 Pulse Rate 122 H 174 H 127 H Respiratory Rate Blood Pressure O2 Sat by Pulse 100 89 100 Oximetry 05/06/20 05/06/20 05/06/20 06:44 06:49 06:54 Pulse Rate 107 H 107 H 116 H Respiratory Rate Blood Pressure O2 Sat by Pulse 100 99 96 Oximetry 05/06/20 06:59 Pulse Rate 113 H Respiratory Rate Blood Pressure O2 Sat by Pulse 97 Oximetry - Exam Breasts: deferred Cardiovascular: Regular rate Lungs: Normal air movement Abdomen: Present: normal appearance, soft. Absent: distention, tenderness Uterus: Present: normal FHR: auscultation normal, category 2 Uterine Contraction Monitor Mode: Internal Cervical Dilatation: 9 (ISE applied) Cervical Effacement Percentage: 100 station: -2 Uterine Contraction Pattern: Regular Uterine Tone Measurement Phase: Resting Uterine Contraction Intensity: Strong/Firm Extremities: edema Deep Tendon Reflex Grade: Normal +2 - Labs Labs: Abnormal Labs 05/05/20 22:00 MCH 27 L RDW 15.8 H Laboratory Results - last 24 hr 05/05/20 05/05/20 05/05/20 22:00 22:00 22:00 WBC 9.2 RBC 4.05 Hgb 11.0 Hct 32.5 MCV 80 MCH 27 L MCHC 34 RDW 15.8 H Plt Count 208 POC Glucose Syphilis IgG Antibody Nonreactive Blood Type O POSITIVE Antibody Screen Negative 05/06/20 05:28 WBC RBC Hgb Hct MCV MCH MCHC RDW Plt Count POC Glucose 101 Syphilis IgG Antibody Blood Type Antibody Screen
--- NOTE | 2020-05-06 07:30 | Event Note ---
Date: 05/06/20 (Prolonged decelerations noted) Pt with prolonged decelerations noted. Pitocin turned off and pt turned to left lateral. Newsome re-inserted. heart rate recovery back to baseline after interventions. Dr. Quinn aware and updated on pt's progress.
[2020-05-06] MEDS: LACTATED RINGERS 1,000 ML IV SCH (07:43)
[2020-05-06] MEDS ORDERED: BICITRA ORAL LIQD 30ML ONE (07:47)
[2020-05-06] MEDS ORDERED: METOCLOPRAMIDE 10 MG/2 ML INJ ONE (07:47)
[2020-05-06] MEDS ORDERED: ceFAZolin/Water 2 GM/20 ML 2 GM/20 ML SYRINGE IV ONE (07:47)
[2020-05-06] MEDS ORDERED: FAMOTIDINE 20 MG/2 ML INJ IV ONE ×2 (07:49→08:00)
[2020-05-06] MEDS ORDERED: BICITRA ORAL LIQD 30ML PO NR (07:54)
[2020-05-06] MEDS ORDERED: FAMOTIDINE 20 MG/2 ML INJ IV NR (07:56)
[2020-05-06] MEDS ORDERED: METOCLOPRAMIDE 10 MG/2 ML INJ IV NR (08:00)
[2020-05-06] MEDS ORDERED: BICITRA ORAL LIQD 30ML PO ONE (08:00)
[2020-05-06] MEDS ORDERED: METOCLOPRAMIDE 10 MG/2 ML INJ IV ONE (08:00)
[2020-05-06] MEDS ORDERED: ceFAZolin/Water 2 GM/20 ML 2 GM/20 ML SYRINGE IV NR (08:00)
[2020-05-06] MEDS ORDERED: ceFAZolin/STERILE WATER 2 GM/20 ML SYRINGE IV NR (08:00)
--- NOTE | 2020-05-06 08:11 | Event Note ---
Date: 05/06/20 (Prepped for the OR) Pt with continued prolonged decelerations with recovery to baseline, but with minimal variability. Cervical exam 9.5//-2, with -[address] Quinn updated on pt labor progress. Pt prepped for OR, consents signed and orders placed. Explained to patient that needed d/t baby not tolerating labor. Pt and significant other verbalized understanding.
[2020-05-06] MEDS ORDERED: WATER FOR IRRIG STERILE 1,500 ML BOTTLE IR ONE (08:35)
[2020-05-06] MEDS ORDERED: SODIUM CHLORIDE 0.9% IRR 1,500 ML BOTTLE IR ONE (08:35)
[2020-05-06] MEDS ORDERED: dexAMETHasone 20 MG/5 ML VIAL ONE (08:38)
[2020-05-06] MEDS ORDERED: SODIUM BICARB 8.4% 50 MEQ/50 ML VIAL IV ONE (08:38)
[2020-05-06] MEDS ORDERED: BUPIVACAINE/PF (0.5%) 5 MG/1 ML 30 ML VIAL INFILTRATI ONE (08:38)
[2020-05-06] MEDS ORDERED: LIDOCAINE 2%/EPINEPHRINE 1:200,000 VIAL (20 ML) INFILTRATI ONE (08:38)
[2020-05-06] MEDS ORDERED: KETOROLAC 30 MG/1 ML INJ ONE (08:40)
--- NOTE | 2020-05-06 09:41 | Operative Report ---
Operative Report Operative Report: Date of procedure: 05/06/2020 Pre-operative diagnosis: 39 weeks gestation Gestational diabetes BMI 36.6 Nonreassuring tracing Remote from delivery Desires permanent sterilization Post-operative diagnosis: Same Procedure name(s): Primary low transverse section via Pfannenstiel skin incision Bilateral salpingectomy Surgeon: Dr. Quinn Director Business Integration: ANUJ Anesthesia: Epidural EBL: 800 mL Urine output: 1 L of clear urine out at end of procedure Fluids: 1 L Findings: Liveborn male infant 8 pounds 7 ounces Apgars of 8 and 9 at 1 and 5 minutes Grossly normal fallopian tubes and ovaries bilaterally Indications: Patient presented for induction of labor due to gestational diabet es. Patient underwent induction and progressed approximately 9 cm. Patient did not progress beyond 9 cm after approximately 2 hours. Patient was also noted to have recurrent decelerations to the 80s to 90s with contractions. Decision was made at this time to proceed to operating room for operative delivery. All risks benefits and alternatives were discussed with the patient. Consents were signed and placed on the chart. Procedure: Patient was taking to the operating room. Patient was then prepped and draped in sterile fashion after anesthesia was found to be adequate. A low transverse skin incision was made with the scalpel and carried down to the underlying layer of fascia with the Bovie. The fascia was then incised in the midline and this incision was extended bilaterally with the Bovie. The superior aspect of the fascia was grasped with Mikhail clamps tented upward and dissected off of the anterior rectus muscles with the scalpel. In similar fashion the inferior aspect of the fascia was grasped with Mikhail clamps tented upward and dissected off of the anterior rectus muscles. The rectus muscles were then bluntly divided in the midline. The peritoneum was identified and entered into sharply. The Chinmay retractor was placed . the bladder blade was placed. The bladder flap was created using the Metzenbaum scissors. The bladder blade was replaced. A lower transverse uterine incision was made with the scalpel and extended bilaterally with blunt dissection. Artificial rupture of membranes was performed yielding [clear amniotic fluid]. The infant's head was then delivered atraumatically. The anterior shoulder and rest of infant delivered without difficulty. The umbilical cord was clamped x2. The cord was cut. The was then placed in sterile bassinet. [The cord blood was collected.] The placenta was manually extracted in its entirety. The uterus was exteriorized and cleared of all clots and debris. The uterine incision was closed using 0 Vicryl in a running locking fashion. A second imbricating layer of the same suture was then created. Excellent hemostasis was noted. Attention was then turned to the right fallopian tube which was then elevated cauterized and transected and handed off for pathology. This was repeated on the left side. Excellent hemostasis was noted after salpingectomy. The posterior cul-de-sac was copiously irrigated. The uterus was returned to the abdomen. The gutters were also irrigated. The Chinmay retractor was removed from the abdomen the anterior rectus muscles were reapproximated using 3-0 Vicryl. The anterior rectus fascia was reapproximated using 0 Vicryl in a running fashion. The subcuticular fat was reapproximated using 2-0 Vicryl in a running fashion. The skin was reapproximated with 4-0 Monocryl in a subcuticular stitch. The patient tolerated the procedure well. Sponge lap and needle counts were all correct x3. Patient was taken to the recovery room awake and in stable condition.
[2020-05-06] MEDS ORDERED: WITCH HAZEL/ GLYCERIN PAD TP PRN (10:00)
[2020-05-06] MEDS ORDERED: NALOXONE 0.4 MG/1 ML INJ IV PRN (10:00)
[2020-05-06] MEDS ORDERED: LANOLIN/ZINC/DIMETHICONE (LANSINOH) 7 GM TP PRN (10:00)
--- NOTE | 2020-05-06 10:06 | Progress Note ---
Regional Anesthesia Block - Regional Anesthesia Block Start Time: 09:55 Stop Time: 10:00 Performed By:: DARIUS CHRIS Procedure: U/S guided bilateral tap block performed for post-operative pain requested by Dr. Quinn. H&P & labs reviewed. Procedure explained, questions answered, consent obtained. Patient in the supine position with ekg, blood pressure cuff and pulse ox on and working in PACU. Timeout performed immediately before start of procedure. Probe placed in the mid-axillary line and the external oblique, internal oblique, and transverse abdominus muscles identified. Skin was cleansed with 0.5% Chlorahexadine and allowed to dry. A 4" 20 G Pham echogenic needle was advanced in plane until the tip was in the fascial plane between the internal oblique and the transverse abdominus. After negative aspiration 35 ml/side of [30 ml 0.5% Bupivacaine], [50 mcg dexmedetomidine], [10 mg dexamethasone], and [40 ml sterile saline] was injected in 5 ml increments with negative aspiration in between. Patient tolerated procedure well.
--- NOTE | 2020-05-06 10:06 | Post Anesthesia Evaluation ---
- Post Anesthesia Evaluation Patient Participated: Yes Airway Patent: Yes Stable Respiratory Function: Yes Nausea/Vomiting: No Temp > 96.8F: Yes Pain Manageable: Yes Adequeate Hydration: Yes Anesthesia Complications: No Block Receding Appropriately: Yes
[2020-05-06] MEDS: HYDROcodone/ACETAMINOPHEN 5-325 MG TAB PO PRN ×2 (14:27→18:00)
[2020-05-06] MEDS: ceFAZolin/NS 1 GM/50 ML 1 GM/50 ML BAG IV SCH (16:12)
[2020-05-06 20:54] LABS: Hemoglobin 9.7 gm/dl (10.1-14.3)
[2020-05-06] MEDS: KETOROLAC 30 MG/1 ML INJ IV SCH (21:12)
[2020-05-06] MEDS ORDERED: LACTATED RINGERS 1,000 ML IV SCH (21:15)
[2020-05-07] MEDS: ceFAZolin/NS 1 GM/50 ML 1 GM/50 ML BAG IV SCH (00:35)
[2020-05-07] MEDS: HYDROcodone/ACETAMINOPHEN 5-325 MG TAB PO PRN ×5 (00:50→21:16)
[2020-05-07] MEDS: IBUPROFEN 800 MG TAB PO PRN ×3 (04:59→17:50)
[2020-05-07] MEDS ORDERED: DIPHtheria,PERTUSSIS(ACELL),TETANUS VACCINE/PF 0.5 ML VIAL IM ONE (09:44)
[2020-05-07] MEDS: FERROUS SULFATE 325 MG TAB PO SCH (10:28)
--- NOTE | 2020-05-07 11:00 | Progress Note ---
Assessment and Plan - Patient Problems (1) delivery delivered Current Visit: Yes Status: Acute Plan to address problem: continue post c/s pathway. (2) Single live Current Visit: Yes Status: Acute (3) GDM (gestational diabetes mellitus) Onset Date: ~05/05/20 Current Visit: Yes Status: Acute Qualifiers: Gestational diabetes mellitus control: diet-controlled Trimester: second trimester Qualified Code(s): O24.410 - Gestational diabetes mellitus in , diet controlled (4) Sickle cell trait Current Visit: Yes Status: Acute Subjective - Subjective Date of service: 05/07/20 Principal diagnosis: POD#1, s/p c/s w/. (B) salpinectomy Interval history: Resting in bed, no complaints, minimal lochia, +flatus Patient reports: appetite normal, voiding normally, flatus, ambulating normally Objective - Vital Signs Latest vital signs: Vital Signs Temp Pulse Resp BP BP Pulse Ox 05/07/20 10:28 18 05/07/20 06:46 97.9 F 86 18 123/78 98 05/07/20 02:13 98.6 F 84 18 118/69 97 05/06/20 21:40 98.5 F 90 22 125/69 97 05/06/20 16:56 98.2 F 90 18 124/65 97 05/06/20 11:20 98.0 F 71 18 122/68 100 Intake and Output 05/06/20 05/07/20 05/07/20 22:59 06:59 14:59 Intake Total 50 260 Output Total 1500 400 Balance -1450 -140 Intake: IV 50 ANCEF/NS 1 GM/50 ML 1 gm 50 In 50 ml @ 100 mls/hr IV Q8H [facility] Rx#:[id number] Intake, Free Water 260 Output: Urine 1500 400 Indwelling Catheter 1200 Void 300 400 Other: Total, Output Amount 300 400 - Exam Breasts: Present: normal. Absent: engorged Cardiovascular: Present: Regular rate Lungs: Present: Clear to auscultation, Normal air movement Abdomen: Present: soft, normal bowel sounds Uterus: Present: fundal height below umbilicus (NT) Extremities: Present: normal. Absent: tenderness, edema Incision: Present: normal, dry, intact (no s/s infection) - Labs Labs: Abnormal lab results 05/06/20 Range/Units 20:27 Hgb 9.7 L (10.1-14.3) gm/dl Hct 29.0 L (30.3-42.9) %
[2020-05-07] MEDS: SIMETHICONE 80 MG CHEW TAB PO PRN (18:43)
[2020-05-08] MEDS: IBUPROFEN 800 MG TAB PO PRN ×2 (01:27→10:21)
[2020-05-08] MEDS: SIMETHICONE 80 MG CHEW TAB PO PRN ×2 (01:28→16:12)
[2020-05-08] MEDS: HYDROcodone/ACETAMINOPHEN 5-325 MG TAB PO PRN ×2 (05:42→16:12)
[2020-05-08] MEDS: KETOROLAC 30 MG/1 ML INJ IV SCH ×2 (10:21→16:12)
[2020-05-08] MEDS: FERROUS SULFATE 325 MG TAB PO SCH (10:21)
--- NOTE | 2020-05-08 13:51 | Discharge Summary ---
Providers - Providers Date of Admission: 05/05/20 20:25 Date of discharge: 05/08/20 Attending physician: DIONNA PARSONS Primary care physician: DIONNA PARSONS Hospitalization Condition: Good Procedures: with bilateral salpingectomy Hospital course: Normal Disposition: DC-01 TO HOME OR SELFCARE - Discharge Diagnoses (1) delivery delivered Status: Acute (2) Single live Status: Acute (3) GDM (gestational diabetes mellitus) Status: Acute Qualifiers: Gestational diabetes mellitus control: diet-controlled Trimester: second trimester Qualified Code(s): O24.410 - Gestational diabetes mellitus in , diet controlled (4) Sickle cell trait Status: Acute Core Measure Documentation - Palliative Care Palliative Care/ Comfort Measures: Not Applicable - Core Measures Any of the following diagnoses?: none Exam - Constitutional Vitals: Temp Pulse Resp BP Pulse Ox 97.9 F 89 20 125/65 98 05/08/20 08:35 05/08/20 08:35 05/08/20 08:35 05/08/20 08:35 05/08/20 01:45 - Respiratory Respiratory effort: normal - Cardiovascular Rhythm: regular - Extremities Extremities: no ischemia, No edema - Abdominal General gastrointestinal: Present: soft, non-tender, normal bowel sounds Female genitourinary: Present: other (uterus NT, below umbilicus) - Integumentary Integumentary: Present: clear, warm, dry (Incision c/di, no s/s infection) - Psychiatric Psychiatric: appropriate mood/affect, intact judgment & insight, memory intact, cooperative Plan Activity: other (no sex, no exercise, ambulate ~1mile on your property a day. No driving ) Weight Bearing Status: Full Weight Bearing Diet: regular (Drink ~100oz water a day. ) Wound: open to air, keep clean and dry Special Instructions: no heavy lifting (greater than 25lbs) Follow up with: DIONNA PARSONS MD [Primary Care Provider] - 05/16/20 9:30 am (Your postop appointment is scheduled in our [place] office for May 16, 2020 at 930a and the circumcison is scheduled for the same day in our [place] office at 945a) Forms: Work/School Release Form Prescriptions: Docusate Sodium [Colace] 100 mg PO BID PRN #60 capsule PRN Reason: Constipation Lidocain2.5%/Prilocai2.5% [Emla] 2 gm TP ONCE #1 tube Ferrous Sulfate [Feosol 325 MG tab] 325 mg PO QDAY #60 tablet Ibuprofen [Motrin 800 MG tab] 800 mg PO Q8HR PRN #30 tablet PRN Reason: Pain, Moderate (4-6) oxyCODONE /ACETAMINOPHEN [Percocet 5/325] 1 tab PO Q4HR #30 tab
[2020-05-08 17:27] VITALS: BP 133/84
== END 2020-05-08 18:20 | disposition home or self-care (01) | DRG 765 ==
LOC: TRG 20:24 → LD 20:25 → OB 05-06 11:39
PROVIDERS: ADMIT Obstetrics & Gynecology; ATTEND Obstetrics & Gynecology
PROC: 10D00Z1 Extraction of Products of Conception, Low, Open Approach (ICD-10-PCS; principal; 2020-05-06)
PROC: 0UB70ZZ Excision of Bilateral Fallopian Tubes, Open Approach (ICD-10-PCS; 2020-05-06)
PROC: 3E0234Z Introduction of Serum, Toxoid and Vaccine into Muscle, Percutaneous Approach (ICD-10-PCS; 2020-05-07)
DX: O76 Abnormality in fetal heart rate and rhythm complicating labor and delivery (principal); D62 Acute posthemorrhagic anemia; O24.420 Gestational diabetes mellitus in childbirth, diet controlled; O99.02 Anemia complicating childbirth; D57.3 Sickle-cell trait; O99.334 Smoking (tobacco) complicating childbirth; O99.214 Obesity complicating childbirth; E66.9 Obesity, unspecified; Z90.49 Acquired absence of other specified parts of digestive tract; Z82.49 Family history of ischemic heart disease and other diseases of the circulatory system; Z37.0 Single live birth; Z3A.39 39 weeks gestation of pregnancy; Z83.3 Family history of diabetes mellitus; Z30.2 Encounter for sterilization
CPT/HCPCS: 36415; 82962; 85014; 85018; 85027; 86592; 86850; 86900; 86901; 88302; 88307; G0378; A6250; J0690; J1100; J1885; J2590; J3010; J7120

== ENCOUNTER 2020-08-14 21:35 | Emergency (ER) | payer OTHER ==
[2020-08-14 22:49] VITALS: BP 145/80
[2020-08-14] MEDS ORDERED: DIPHtheria,PERTUSSIS(ACELL),TETANUS VACCINE/PF 0.5 ML VIAL IM ONE (23:18)
[2020-08-14] MEDS ORDERED: ACETAMINOPHEN 500 MG TAB PO ONE (23:18)
--- NOTE | 2020-08-14 23:27 | Emergency Department Report ---
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 Patient is applied Band-Aid. She went to [facility] and got medication to stop the bleeding. Patient states she is not aware of the last time she had a tetanus shot. ED Review of Systems ROS: Stated complaint: CUT MIDDLE FINGER Other details as noted in HPI Comment: All other systems reviewed and negative ED Past Medical Hx - Past Medical History Previous Medical History?: Yes Hx Hypertension: No Hx Diabetes: Yes (GDM no meds) Hx Deep Vein Thrombosis: No Hx Renal Disease: No Hx Sickle Cell Disease: Yes (trait) Hx Seizures: No Hx Asthma: No - Surgical History Past Surgical History?: Yes Hx Cholecystectomy: Yes Additional Surgical History: CSection & Tubal Ligation - Social History Smoking Status: Never Smoker - Medications Home Medications: Home Medications Medication Instructions Recorded Confirmed Last Taken Type Metoclopramide [Reglan] 10 mg PO TID #60 tab 10/15/19 05/06/20 Unknown Rx Docusate Sodium [Colace] 100 mg PO BID PRN #60 capsule 05/06/20 Unknown Rx Ferrous Sulfate [Feosol 325 MG tab] 325 mg PO QDAY #60 tablet 05/06/20 Unknown Rx Ibuprofen [Motrin 800 MG tab] 800 mg PO Q8HR PRN #30 tablet 05/06/20 Unknown Rx Lidocain2.5%/Prilocai2.5% [Emla] 2 gm TP ONCE #1 tube 05/06/20 Unknown Rx oxyCODONE /ACETAMINOPHEN [Percocet 1 tab PO Q4HR #30 tab 05/06/20 Unknown Rx 5/325] cephALEXin [Keflex] 500 mg PO Q12HR 7 Days #14 cap 08/14/20 Unknown Rx Laceration Physical Exam - Exam General: Vital signs noted. No distress. Alert and acting appropriately. 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 Patient is applied Band-Aid. She went to [facility] and got medication to stop the bleeding. Patient states she is not aware of the last time she had a tetanus shot. Finger was cleaned fresh Band-Aid placed no active bleeding. Patient to be given a tetanus shot. 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 Patient was given a Tylenol for pain management and will be discharged home and recommending ibuprofen or Tylenol for pain management. Critical care attestation.: If time is entered above; I have spent that time in minutes in the direct care of this critically ill patient, excluding procedure time. ED Disposition Clinical Impression: Laceration of left middle finger Disposition: [id number] TO HOME OR SELFCARE Is pt being admited?: No Does the pt Need Aspirin: No Condition: Stable Instructions: Laceration Care, Adult, [id number] Additional Instructions: Keep wound clean and dry. Take Tylenol ibuprofen for pain management. Complete antibiotics as prescribed. Follow-up with a primary care provider. Return back to the emergency room if any worsening concerns. Prescriptions: cephALEXin [Keflex] 500 mg PO Q12HR 7 Days #14 cap Referrals: PRIMARY CARE, [Primary Care Provider] - 3-5 Days Forms: Work/School Release Form(ED)
== END 2020-08-14 23:30 | disposition home or self-care (01) ==
LOC: ED 21:35
DX: S61.213A Laceration without foreign body of left middle finger without damage to nail, initial encounter (principal); E11.9 Type 2 diabetes mellitus without complications; D57.1 Sickle-cell disease without crisis; Z90.49 Acquired absence of other specified parts of digestive tract; Z98.51 Tubal ligation status; Z98.890 Other specified postprocedural states; Z79.1 Long term (current) use of non-steroidal anti-inflammatories (NSAID); Z79.899 Other long term (current) drug therapy; W26.0XXA Contact with knife, initial encounter; Y93.89 Activity, other specified; Y92.89 Other specified places as the place of occurrence of the external cause; Y99.8 Other external cause status
CPT/HCPCS: 90471; 90715; 99282